=== PATIENT | female | born 1965 | race African-American/Black ===

== ENCOUNTER 2022-09-08 16:46 | Emergency (ER) | payer BC, MEDICARE, SELFPAY ==
[2022-09-08] VITALS (9 sets, daily range): BP systolic 100–153; BP diastolic 73–83; PULSE 70–118; RESP 18–23; TEMP 36.4–36.7; O2SAT 92–100
--- NOTE | ~2022-09-08 | XR_ITS ---
EXAMINATION: XR chest 2V Exam Date/Time: 09/08/2022 17:05 CDT HISTORY: SOB, COUGH X TODAY Comparison: None available. RESULT: Lines, tubes, and devices: None. Lungs and pleura: Diffuse reticular opacities with cuffing. Cardiomediastinal silhouette: Stable. Other: No acute osseous or upper abdominal finding. IMPRESSION: Mild interstitial edema versus respiratory bronchiolitis. Reviewed, dictated and finalized at location K.
--- NOTE | 2022-09-08 16:49 | ECG_ITS ---
Measurements Intervals [place] Rate: 107 P: 65 WV: 134 QRS: 9 QRSD: 85 T: 59 QT: 354 QTc: 474 Interpretive Statements SINUS TACHYCARDIA POSSIBLE LEFT ATRIAL ENLARGEMENT BASELINE WANDER- V2 ABNORMAL ECG NO PREVIOUS ECG AVAILABLE FOR COMPARISON Electronically Signed On 09-09-2022 7:53:21 CDT by Mendel Le D.O.
--- NOTE | 2022-09-08 17:09 | ED.SOB ---
HPI - SOB/Dyspnea General Chief Complaint: Shortness of Breath/Dyspnea <Ekaterina Lagos MD - Last Filed: 09/09/22 08:52> Stated Complaint: SOB <Ekaterina Lagos MD - Last Filed: 09/09/22 08:52> Time Seen by Provider: 09/08/22 16:51 <Ekaterina Lagos MD - Last Filed: 09/09/22 08:52> History of Present Illness HPI Narrative: Patient presents here with difficulty breathing, she had had symptoms about 10 days ago, was told she had viral pneumonia and had been started on 10 days of steroids, was initially feeling better but today was coughing again. Has not needed breathing treatments in the past and no known history of COPD or asthma. <Ekaterina Lagos MD - Last Filed: 09/09/22 08:52> Related Data Allergies/Adverse Reactions: Allergies Allergy/AdvReac Type Severity Reaction Status Date / Time No Known Allergies Allergy Verified 09/08/22 16:51 <Ekaterina Lagos MD - Last Filed: 09/09/22 08:52> Review of Systems Review of Systems: CONST: No fever. HEENT: No sore throat C/V: No chest pain RESP: Cough and shortness of breath GI: No nausea, or vomiting : No dysuria. M/S: No joint pain. SKIN: No rash. NEURO: [No headache or focal numbness or weakness] PSYCH: [No depression] <Ekaterina Lagos MD - Last Filed: 09/09/22 08:52> [facility] Social History Social History: Social History (Updated 09/08/22 @ 17:10 by Ekaterina Lagos MD) Smoking status: Former smoker <Ekaterina Lagos MD - Last Filed: 09/09/22 08:52> Exam Narrative: EXAMINATION OF ORGAN SYSTEMS/BODY AREAS: Constitutional: Vital signs per nursing GENERAL:[No acute distress, non-toxic appearing.] HEAD: Normal with no signs of head trauma. EYES: EOMI, conjunctiva normal ENT: Hearing grossly intact LUNGS: Extensive wheezing and diminished breath sounds HEART: Tachycardic ABD: [Soft], [nontender to palpation] EXT: Normal range of motion SKIN: [No rashes or lesions.] NEURO: [Alert and oriented x 3. No gross focal sensory or strength deficits.] PSYCH: Normal affect <Ekaterina Lagos MD - Last Filed: 09/09/22 08:52> Course Course Emergency Course: 2099 ZYCH: Patient was signed out to me pending completion of her workup. BNP was negative. On re-evaluation patient's lungs are clear. Patient says that she feels significantly improved. She will be discharged with an albuterol inhaler primary care follow-up. She was slightly tachycardic at discharge but after multiple breathing treatments this is likely from her albuterol. Otherwise patient is well-appearing w/ stable v/s and ready to go home. Discharged. <Pierce Logan MD - Last Filed: 09/08/22 21:04> Vital Signs Vital signs: Vital Signs Temperature 98.0 F 09/08/22 16:43 Pulse Rate 118 H 09/08/22 16:43 Respiratory Rate 23 H 09/08/22 16:43 Blood Pressure 100/83 09/08/22 16:43 Pulse Oximetry 92 09/08/22 16:43 Oxygen Delivery Room Air 09/08/22 16:43 Temperature 98 F 09/08/22 20:58 Pulse Rate 70 09/08/22 20:58 Respiratory Rate 18 09/08/22 20:58 Blood Pressure 133/77 09/08/22 20:58 Pulse Oximetry 99 09/08/22 20:58 Oxygen Delivery Room Air 09/08/22 20:55 Oxygen Flow Rate 2 09/08/22 17:52 <Ekaterina Lagos MD - Last Filed: 09/09/22 08:52> Vital Signs Temperature 98.0 F 09/08/22 16:43 Pulse Rate 118 H 09/08/22 16:43 Respiratory Rate 23 H 09/08/22 16:43 Blood Pressure 100/83 09/08/22 16:43 Pulse Oximetry 92 09/08/22 16:43 Oxygen Delivery Room Air 09/08/22 16:43 Temperature 98 F 09/08/22 20:58 Pulse Rate 70 09/08/22 20:58 Respiratory Rate 18 09/08/22 20:58 Blood Pressure 133/77 09/08/22 20:58 Pulse Oximetry 99 09/08/22 20:58 Oxygen Delivery Room Air 09/08/22 20:55 Oxygen Flow Rate 2 09/08/22 17:52 <Pierce Logan MD - Last Filed: 09/08/22 21:04> MDM - SOB/Dyspnea MDM Narrative Medical decision making narrative: ED COURSE AND MEDICAL DECISION MAKIN-year-old fema
[2022-09-08] MEDS: LEVALBUTEROL NEB 1.25 MG/3 ML 5 MG INHALATION (17:20)
[2022-09-08] MEDS: IPRATROPIUM BR 0.02% INH SOLN 0.5 MG/2.5 ML VIAL 1 MG INHALATION (17:20)
[2022-09-08 17:35] LABS: Basophils Absolute Auto 0.1 K/mm3 (0.0-0.1); Basophils Percent Auto 0.5 % (0.2-1.2); Eosinophils Absolute Auto 0.2 K/mm3 (0-0.3); Eosinophils Percent Auto 2.6 % (0-4.4); Hematocrit 35.5 % (37.0-47.0); Hemoglobin 10.5 g/dL (12.0-15.0); Immature Granulocyte Absolute 0.03 K/mm3 (0.00-0.031); Immature Granulocyte Percent A 0.3 % (0-0.5); Lymphocytes Absolute Auto 2.65 K/mm3 (0.9-3.2); Lymphocytes Percent Auto 29.1 % (18.3-44.2); Mean Corpuscular HGB Conc 29.6 g/dl (32-36); Mean Corpuscular Volume 87.9 fl (80-100); Mean Platelet Volume 8.7 fl (7.4-10.4); Monocytes Absolute Auto 0.6 K/mm3 (0.1-0.6); Monocytes Percent Auto 6.3 % (2.6-8.5); Neutrophils Absolute Auto 5.6 K/mm3 (1.3-6.7); Neutrophils Percent Auto 61.2 % (45.5-73.1); Platelet Count Result 430 k/mm3 (150-375); Red Blood Count 4.04 M/mm3 (4.2-5.4); Red Cell Distribution Width 14.9 % (11.5-14.5); White Blood Count 9.1 K/mm3 (4.5-10.0)
[2022-09-08 17:44] LABS: Alanine Aminotransferase 16 U/L (6-35); Albumin Level 4.4 g/dL (3.5-5.1); Alkaline Phosphatase 95 U/L (38-126); Anion Gap 5 mmol/L (8-16); Aspartate Amino Transferase 26 U/L (14-36); Bilirubin,Total 0.5 mg/dL (0.2-1.3); Blood Urea Nitrogen 14 mg/dL (7-17); Calcium 8.9 mg/dL (8.4-10.2); Carbon Dioxide 31 mmol/L (22-30); Chloride 104 mmol/L (98-107); Estimated CRCL calculation 87 ml/min; Estimated Glomerular Filt Rate > 60; Glucose 87 mg/dL (65-110); Potassium 4.2 mmol/L (3.4-5.0); Sodium 140 mmol/L (137-145)
[2022-09-08 18:08] LABS: Hypochromasia 1+ (NORMAL); Ovalocytes 1+ (NORMAL); Platelet Estimate Increased (Adequate); Schistocytes None Seen (NORMAL)
[2022-09-08 18:13] LABS: Influenza A QL RT-PCR Negative (Negative); Influenza B QL RT-PCR Negative (Negative); RSV RNA, RT-PCR Negative (Negative); SARS-CoV-2 RNA PCR Negative (Negative)
[2022-09-08 19:13] LABS: NT Pro B Type Natriuretic Pept 63 pg/mL (19.9-100)
== END 2022-09-08 20:58 | disposition home or self-care (01) ==
PROVIDERS: Emergency Medicine; Emergency Provider Emergency Medicine; PCP Family Medicine
DX: J20.9 Acute bronchitis, unspecified (principal); Z20.822 Contact with and (suspected) exposure to COVID-19; Z87.891 Personal history of nicotine dependence; R06.2 Wheezing
CPT/HCPCS: 36415; 71046; 80053; 83880; 85025; 87040; 87637; 93005; 94640; 99284